=== PATIENT | female | born 1975 | race Caucasian/White ===

== ENCOUNTER 2025-04-27 12:43 | Day surgery (SDC) | payer OTHER, SELFPAY ==
[2025-04-27] VITALS (8 sets, daily range): BP systolic 94–101; BP diastolic 57–70; PULSE 46–65; RESP 16; TEMP 36.3–36.9; O2SAT 98–100; BMI 24.5
--- NOTE | 2025-04-27 12:52 | PCM.HP.STD ---
[facility] EMERGENCY ROOM General General Date of Admission: 04/27/25 Date of Service: 04/27/25 Chief Complaint: Screening colonoscopy [facility] Narrative SALMA CHANEY, is a 50 F who presents today for first colonoscopy. She has no known drug allergies. She does not take any medicines on a daily basis. She does not have any problems with her bowels. She has no family history of colon cancer or colon polyps. Overall she is in very good health. [facility] Medical History Post-menopausal Wears glasses Wears contact lenses Low iron Easy bruising Non-smoker Vertigo Home Medications Medication Instructions Recorded Last Taken Type BEEF ORGAN 1 tab PO DAILY 04/23/25 Unknown History DIGEST ALL 1 tab PO TID 04/23/25 Unknown History magnesium 250 mg tablet 250 mg PO DAILY 04/23/25 Unknown History multivitamin (Daily Multi-Vitamin 1 tab PO DAILY 04/23/25 Unknown History tablet) Allergy/AdvReac Type Severity Reaction Status Date / Time No Known Allergies Allergy Verified 04/23/25 11:58 Surgical History History of hysteroscopy Social History Smoking Status: Never smoker ROS Constitutional Constitutional: Denies fatigue, fever(s), poor appetite, weight gain or weight loss Gastrointestinal Gastrointestinal: Denies belching, bloating, change in bowel habits, change in stool character, chewing difficulty, coffee ground emesis, constipation, cramping, diarrhea, dyspepsia, dysphagia, early satiety, excessive flatus, fecal incontinence, heartburn, hematemesis, hematochezia, hemorrhoids, loose stools, melena, nausea, odynophagia, rectal bleeding, tenesmus, vomiting or weight changes Physical Exam Const alert, oriented x3, no apparent distress and healthy appearing General Appearance: cooperative GI normal to inspection, nondistended, normoactive bowel sounds, soft to palpation, non-tender and non-distended Percussion: normal to percussion Rectal Exam: deferred Assessment & Plan Assessment/Plan (1) Encounter for screening colonoscopy: PLAN: Assessment and Plan Assessment and Plan (1) Abdominal symptoms: (2) Abdominal pain: Status: Acute Plan: This is a 52 yo male pt here today for evaluation of left sided abd pain x1 month. Pt has not had prior work up for this. I will start work up with CT abd/pelvis. He will undergo colonoscopy and EGD. He has never had a screening colonoscopy. I will prescribe him dicyclomine 10 mg BID PRN for abd cramping. He mentions a PMHx of [place] esophagus. He will undergo EGD as well. -Colonoscopy and EGD -CT abd/pelvis -Dicyclmine PRN Orders: Orders Abdomen/Pelvis WITH Contrast Today R10.9 - Unspecified abdominal pain
[2025-04-27] MEDS: Lactated Ringers 1,000 ML 15 ML IV (13:05)
--- NOTE | 2025-04-27 13:22 | PCM.PRE.AN2 ---
ASA Classification* ASA Classification ASA Classification: 2 Assessment & Plan Anesthesia* Anesthesia Assessment Anesthesia Assessment: Discussed sedation and/or anesthesia options, risks, benefits, and alternatives with patient/parents/legal guardian/POA. Questions invited. The patient/parents/legal guardian/POA seems to understand and agrees to proceed with anesthesia plan. Reviewed the physical assessment, medical history, allergy history and patient home medications list prior to surgery/procedure/anesthetic and documented any changes. Performed airway and anesthesia risk assessments. 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 When Was Last Pacemaker Check QUESTION #4 FULL TEXT: You/Your Family Experience fever (hyperthermia) with Anesthesia Last Oral Intake Last Oral intake: Last Oral Intake NPO since 08:00 04/27/25 12:58 Meds taken in AM with sips of No 04/27/25 12:58 water? Meds patient instructed to take am of surgery PONV PONV - cupola operator insulation: PONV - cupola operator insulation Female Yes 04/23/25 12:00 HX of Motion Sickness No 04/23/25 12:00 HX of N/V After Surgery Yes 04/23/25 12:00 Non-Smoker Yes 04/23/25 12:00 Duration of Surgery greater No 04/23/25 12:00 than 60 minutes Number of Risk Factors 3 04/23/25 12:00 PONV Score Moderate Risk 04/23/25 12:00 Height & Weight Height & Weight: Anesthesia: Height & Weight Height 5 ft 6 in 04/27/25 12:58 Weight: 69 kg 04/27/25 12:58 Body Mass Index (BMI) 24.5 04/27/25 12:58 Respiratory Assessment Respiratory Assessment - cupola operator insulation: Respiratory Tract Infection Hx - cupola operator insulation Hx Respiratory Tract Infection No 04/23/25 12:00 STOP Sleep Apnea STOP Sleep Apnea - cupola operator insulation: STOP Sleep Apnea - cupola operator insulation Hx Hypertension No 04/23/25 12:00 Hx Sleep Apnea No 04/23/25 12:00 CPAP BIPAP Do you snore loudly (louder Yes 04/23/25 12:00 than talking or can be heard Do you often feel tired/ No 04/23/25 12:00 fatigued/ sleepy during daytime? Has anyone observed you stop No 04/23/25 12:00 breathing during sleep? STOP Results Negative 04/23/25 12:00 QUESTION #5 FULL TEXT : Do you snore loudly (louder than talking or can be heard through closed doors)? 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 Specify any problems Hx of Preganancy in last 3 No 04/23/25 12:00 Months Nurse Filling Out Transfusion DSCHRIBER 04/23/25 12:00 & Questions: Date: 04/23/25 04/23/25 12:00 Time: 12:04/23/25 12:00 Patient unable to answer at this time (ie. confused, unrespo /Reproduction History /Reproductive History - cupola operator insulation: /Reproductive Hx- cupola operator insulation Hx Now No 04/23/25 12:00 Gestational Age (in weeks): EDC: Hx Hx Para Hx Section SAB No 04/23/25 12:00 Active Medications Active Medications: Current Medications Generic Name Dose Route Start Last Admin Trade Name Freq PRN Reason Stop Dose Admin Lactated Ringer's 1,000 mls @ 15 mls/hr 04/27/25 13:00 04/27/25 13:05 IV 15 mls/hr .Q48H REFUGIO Administration PFSH Medical History Post-menopausal Wears glasses Wears contact lenses Low iron Easy bruising Non-smoker Vertigo Home Medications Medication Instructions Recorded Last Taken Type BEEF ORGAN 1 tab PO DAILY 04/23/25 Unknown History DIGEST ALL 1 tab PO TID 04/23/25 Unknown History magnesium 250 mg tablet 250 mg PO DAILY 04/23/25 Unknown History multivitamin (Daily Multi-Vitamin 1 tab PO DAILY 04/23/25 Unknown History tablet) Allergy/AdvReac Type Severity Reaction Status Date / Time No Known Allergies Allergy Verified 04/27/25 12:58 Surgical History History of hysteroscopy Social History Smoking Status: Never smoker Review of Systems (Anesthesia) ROS Narrative System reviewed and no additional complaints, except as documented.
--- NOTE | 2025-04-27 13:30 | COLBX_PTH ---
PATIENT: SALMA CHANEY LOC: EN U#:[id number] AGE/SX: 50/F ROOM: RE04/27/[address]: Dr. Fawad Patterson DO : 1975 BED: DIS: 04/27/2025 SPEC #: [id number] RECD: 04/27/25 15:38 STATUS: MARGARETTE REJuani #: [id number] KATHE: 04/27/25 13:[address]: Fawad Patterson DEPT: SURGICAL PATHOLOGY RECD BY: Goldy Rivera ENTERED: 04/28/25 10:41 SP TYPE: COLON BX OTHR DR: CHARO Bartholomew Tissues: A - Transverse colon B - Ascending colon C - Rectum, NOS Procedures: Surgery Specimen Level IV HEADER OPERATION: Colonoscopy, polypectomy PRE-OP DIAGNOSIS: Abdominal pain, screening TISSUE SUBMITTED: A- Transverse colon polyp, B- Ascending colon polyp, C- Rectal polyp MICROSCOPIC DIAGNOSIS A. Ascending colon, polyp, biopsy: - Colonic mucosa with small mucosal lymphoid aggregate. B. Ascending colon, polyp, biopsy: - Tubular adenoma. C. Rectum, polyp, biopsy: - Tubulovillous adenoma (multiple fragments). MICROSCOPIC DESCRIPTION Slides are reviewed. GROSS DESCRIPTION A. Received in fixative is one container labeled with the patient's name and designated "Transverse colon polyp." The specimen consists of one irregular fragment of light lujan soft tissue that measures 0.3 cm. The specimen is totally submitted in one cassette. B. Received in fixative is one container labeled with the patient's name and designated "Ascending colon polyp." The specimen consists of one irregular fragment of light lujan soft tissue that measures 0.8 cm. The specimen is totally submitted in one cassette. C. Received in fixative is one container labeled with the patient's name and designated "Rectal polyp." The specimen consists of multiple irregular fragments of light lujan soft tissue that in aggregate measure 1.4 x 0.6 x 0.2 cm. The specimen is totally submitted in one cassette. MAYANK/ 04/28/2025 CPT:64741m4
--- NOTE | 2025-04-27 14:11 | OP.COLON_ITS ---
Patient Name: Gina Linares Procedure Date: 04/27/2025 1:38 PM Date of : 1975 Age: 50 Procedure: Colonoscopy Indications: Screening for colorectal malignant neoplasm Providers: Fawad Patterson DO Referring MD: Kel Bartholomew Medicines: Monitored Anesthesia Care Patient Profile: This is a 50 year old female. Refer to note in patient chart for documentation of history and physical. Last Colonoscopy: none. The patient's first colonoscopy is today. Complications: No immediate complications. Procedure: Pre-Anesthesia Assessment: - Prior to the procedure, a History and Physical was performed, and patient medications and allergies were reviewed. The patient is competent. The risks and benefits of the procedure and the sedation options and risks were discussed with the patient. All questions were answered and informed consent was obtained. Patient identification and proposed procedure were verified by the physician in the pre-procedure area. Mental Status Examination: alert and oriented. Airway Examination: normal oropharyngeal airway and neck mobility. Respiratory Examination: clear to auscultation. CV Examination: normal. Prophylactic Antibiotics: The patient does not require prophylactic antibiotics. Prior Anticoagulants: The patient has taken no anticoagulant or antiplatelet agents except for NSAID medication. ASA Grade Assessment: II - A patient with mild systemic disease. After reviewing the risks and benefits, the patient was deemed in satisfactory condition to undergo the procedure. The anesthesia plan was to use monitored anesthesia care (MAC). Immediately prior to administration of medications, the patient was re-assessed for adequacy to receive sedatives. The heart rate, respiratory rate, oxygen saturations, blood pressure, adequacy of pulmonary ventilation, and response to care were monitored throughout the procedure. The physical status of the patient was re-assessed after the procedure. After I obtained informed consent, the scope was passed under direct vision. Throughout the procedure, the patient's blood pressure, pulse, and oxygen saturations were monitored continuously. The adult colonoscope was introduced through the anus and advanced to the cecum, identified by appendiceal orifice and ileocecal valve. The colonoscopy was performed without difficulty. The patient tolerated the procedure well. The quality of the bowel preparation was adequate. The ileocecal valve, appendiceal orifice, and rectum were photographed. Scope In: 1:50:13 PM Scope Withdrawal Time 0 hours 10 minutes 40 seconds Scope Out: 2:07:00 PM Total Procedure Duration Time 0 hours 16 minutes 47 seconds Findings: Two sessile polyps were found in the transverse colon and ascending colon. The polyps were 4 mm in size. These polyps were removed with a jumbo cold forceps. Resection and retrieval were complete. Verification of patient identification for the specimen was done. Estimated blood loss was minimal. A 10 mm polyp was found in the rectum. The polyp was sessile. The polyp was removed with a hot snare. Resection and retrieval were complete. Verification of patient identification for the specimen was done. Estimated blood loss was minimal. Impression: - Two 4 mm polyps in the transverse colon and in the ascending colon, removed with a jumbo cold forceps. Resected and retrieved. - One 10 mm polyp in the rectum, removed with a hot snare. Resected and retrieved. Recommendation: - Repeat colonoscopy in 5 years for surveillance. - Continue present medications. Procedure Code(s): --- Professional --- 32258, Colonoscopy, flexible; with removal of tumor(s), polyp(s), or other lesion(s) by snare technique 51024, 59, Colonoscopy, flexible; with biopsy, single or multiple CPT copyright 2021 [employer]. All rights reserved. The codes documented in this report are preliminary and upon blanchard grinder operator review may be revised to meet current compliance requirements. Fawad Patterson DO 04/27/2025 2:11:25 PM This report has been signed electronically. Number of Addenda: 0 Note Initiated On: 04/27/2025 1:38 PM
--- NOTE | 2025-04-27 14:11 | OP.CCLET_ITS ---
04/27/2025 Kel Bartholomew Re : Colonoscopy procedure for Gina Cleaning Abdirizak This procedure was performed on Sunday, April 27, 2025. My impressions and recommendations are as follows: Impressions : - Two 4 mm polyps in the transverse colon and in the ascending colon, removed with a jumbo cold forceps. Resected and retrieved. - One 10 mm polyp in the rectum, removed with a hot snare. Resected and retrieved. Recommendations : - Repeat colonoscopy in 5 years for surveillance. - Continue present medications. My findings are described in the full procedure note, which is enclosed. If I can be of further assistance, please feel free to contact me at . Sincerely, Fawad Patterson, 04/27/2025 2:11:25 PM This report has been signed electronically.
--- NOTE | 2025-04-27 14:20 | PCM.POST.ANE ---
Anesthesia: Postop Eval I Current Vital Signs Temperature: 98.5 F Pulse Rate: 64 Blood Pressure: 101/58 Respiratory Rate: 16 Pulse Ox: 98 Oxygen Delivery Method: Room Air Assessment Airway patent: Yes Spontaneous unlabored respirations: Yes Mental status: Awake and Calm nausea: No Vomiting: No Anesthesia Complication: No Fluid Hydration Crystalloid volume administer (ml): 500 Total IV fluid infused: 500 Progress Note Anesthesia document: Postop Eval 1 completed: Yes
--- NOTE | 2025-04-27 15:38 | PCM.POSTANE2 ---
Anesthesia Postop Eval I Sum Postop Eval Completion status Anesthesia document: Postop Eval 1 completed: Yes Anesthesia Postop Eval I Summary Anesthesia Postop Eval I Summary: Anesthesia Postop Eval I: Assessment Summary Airway patent Yes 04/27/25 14:21 [email or web address] Spontaneous unlabored Yes 04/27/25 14:21 [email or web address] respirations Mental status Awake,Calm 04/27/25 14:21 [email or web address] nausea No 04/27/25 14:21 [email or web address] Vomiting No 04/27/25 14:21 [email or web address] Anesthesia Postop Eval I: Fluid Summary Crystalloid volume administer 500 04/27/25 14:21 [email or web address] (ml) Colloids volume administered ( ml) Blood Product volume administered (ml) Total IV fluid infused 500 04/27/25 14:21 [email or web address] Anesthesia Postop Eval I: Summary Notes Anesthesia Complication No 04/27/25 14:21 [email or web address] Anesthesia Complication Comment: Post-operative progress note Anesthesia: Postop Eval II Evaluation Mental status: Awake and Calm Pain Level: 2 nausea: No Vomiting: No Complications Anesthesia Complication: No
== END 2025-04-27 14:44 | disposition home or self-care (01) ==
LOC: EN 12:48 → AC 12:49
PROVIDERS: Visit Provider Internal Medicine Gastroenterology
PROC: 0DJD8ZZ Inspection of Lower Intestinal Tract, Via Natural or Artificial Opening Endoscopic (ICD-10-PCS; CPT 45378; principal; 2025-04-27 13:25)
DX: Z12.11 Encounter for screening for malignant neoplasm of colon (principal); D12.2 Benign neoplasm of ascending colon; D12.8 Benign neoplasm of rectum
CPT/HCPCS: 45385; 45380; 88305; J2405